=== PATIENT | female | born 1975 | race Caucasian/White ===

== ENCOUNTER 2018-05-04 11:49 | Inpatient (IN) | payer OTHER ==
[2018-05-04 12:05] VITALS: BMI 20.4
--- NOTE | 2018-05-04 12:56 | HP ---
CIWA Score - CIWA Score Nausea/Vomitin Muscle Tremors: 3 Anxiety: 3 Agitation: 2 Paroxysmal Sweats: 1-Minimal Palms Moist Orientation: 0-Oriented Tacttile Disturbances: 1-Very Mild Itch/Numbness Auditory Disturbances: 1-Very Mild Visual Disturbances: 1-Very Mild Sensitivity Headache: 2-Mild CIWA-Ar Total Score: 17 Admission ROS BHS - HPI Chief Complaint: i need help to stop drinking alcohol, Allergies/Adverse Reactions: Allergies Allergy/AdvReac Type Severity Reaction Status Date / Time bacitracin Allergy Verified 05/04/18 12:43 butorphanol [From Stadol] Allergy Verified 05/04/18 12:43 fish derived Allergy Verified 05/04/18 12:43 latex Allergy Verified 05/04/18 12:43 pentazocine [From Talwin] Allergy Verified 05/04/18 12:43 History of Present Illness: this 43 years old female with alcohol dependence,seeking detox,withdrawal symptom,last detox last [facility], alcohol related seizure last 2016 syncope,last 05/02/18 hepatitis c bipolar disorder,manic depressive,ptsd weight loss nicotine dependence longest period of 21 years multiple abdominal surgery appendectomy in 2009,ovarean cystectomy in 2013, abdominal hernia with mesh in 2016 Exam Limitations: No Limitations - Ebola screening Have you traveled outside of the country in the last 21 days: No (N) Have you had contact with anyone from an Ebola affected area: No Have you been sick,other than usual withdrawal symptoms: No Do you have a fever: No - Review of Systems Constitutional: Loss of Appetite, Malaise, Night Sweats, Changes in sleep, Weakness, Unintentional Wgt. Loss EENT: reports: Nose Congestion Respiratory: reports: No Symptoms reported Cardiac: reports: Palpitations GI: reports: Diarrhea, Nausea, Poor Appetite, Vomiting, Abdominal cramping : reports: No Symptoms Reported Musculoskeletal: reports: Back Pain, Muscle Pain Integumentary: reports: Dryness Neuro: reports: Headache, Tremors Endocrine: reports: Other (gestational diabetes) Hematology: reports: No Symptoms Reported Psychiatric: reports: No Sypmtoms Reported, Judgement Intact, Mood/Affect Appropiate, Anxious (bipolar disorder,manic depressive,ptsd), Depressed Patient History - Patient Medical History Hx Anemia: No Hx Asthma: No Hx Chronic Obstructive Pulmonary Disease (COPD): No Hx Cancer: No Hx Cardiac Disorders: No Hx Congestive Heart Failure: No Hx Hypertension: No Hx Hypercholesterolemia: No Hx Pacemaker: No HX Cerebrovascular Accident: No Hx Seizures: Yes (alcohol related last 2016) Hx Dementia: No Hx Diabetes: No Hx Gastrointestinal Disorders: No Hx Liver Disease: Yes (hepatitis c) Hx Genitourinary Disorders: No Hx Sexually Transmitted Disorders: No Hx Renal Disease (ESRD): No Hx Thyroid Disease: No Hx Human Immunodeficiency Virus (HIV): No (last 2017 negative) Hx Hepatitis C: Yes Hx Depression: Yes Hx Suicide Attempt: Yes (cutter at age 39) Hx Bipolar Disorder: Yes Hx Schizophrenia: Yes (manic depressive) Other Medical History: no suicidal,no homicidal - Patient Surgical History Past Surgical History: Yes Hx Abdominal Surgery: Yes Hx Appendectomy: Yes (in 2009) Other Surgical History: ovarean cystectomy in 2013,hernia with mesh in 2015 - PPD History Previous Implant?: No Documented Results: Negative w/o proof Implanted On Prior R Admission?: No - Reproductive History Patient is a Female of Child Bearing Age (11 -55 yrs old): Yes Last Menstrual Period: 04/02/18 Patient : No - Smoking Cessation Smoking history: Current every day smoker Aproximately how many cigarettes per day: 15 Hx Chewing Tobacco Use: Yes Initiated information on smoking cessation: Yes 'Breaking Loose' booklet given: 05/04/18 - Substance & Tx. History Hx Alcohol Use: Yes Hx Substance Use: Yes Substance Use Type: Alcohol, Marijuana - Substances Abused Alcohol Route: Oral Frequency: Daily Amount used: 4-5 PINTS VODKA 6 BEERS Age of first use: 12 Date of Last Use: 05/03/18 Marijuana/Hashish Route: Smoking Frequency: 1-3 times last 30 days Amount used: 10$ Age of first use: 12 Date of Last Use: 05/02/18 Family Disease History - Family Disease History Family Disease History: Other: Father (alcohol) Admission Physical Exam S - Vital Signs Vital Signs: Vital Signs - 24 hr 05/04/18 12:02 Temperature 98.1 F Pulse Rate 108 H Respiratory 20 Rate Blood Pressure 112/77 - Physical General Appearance: Yes: Moderate Distress, Tremorous, Irritable, Sweating, Anxious HEENTM: Yes: Normocephalic, NANCI, Pharynx Normal, Other (dry lip and mucosa) Respiratory: Yes: Lungs Clear, Normal Breath Sounds, No Respiratory Distress Neck: Yes: Within Normal Limits, Supple, Trachea in good position Breast: Yes: Breast Exam Deferred Cardiology: Yes: Tachycardia Abdominal: Yes: Within Normal Limits, Normal Bowel Sounds, Non Tender, Soft Genitourinary: Yes: Within Normal Limits Musculoskeletal: Yes: Back pain, Muscle Pain Extremities: Yes: Tremors 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 NML intact, Fully Oriented, Alert, Motor Strength 5/5 Integumentary: Yes: Dry Lymphatic: Yes: Within Normal Limits - Diagnostic (1) Alcohol dependence with uncomplicated withdrawal Current Visit: Yes Status: Acute (2) Cannabis abuse Current Visit: Yes Status: Acute (3) Alcohol related seizure Current Visit: Yes Status: Acute (4) Syncope Current Visit: Yes Status: Acute (5) Weight loss Current Visit: Yes Status: Acute (6) Hepatitis C Current Visit: Yes Status: Acute (7) Bipolar disorder Current Visit: Yes Status: Acute (8) Manic depressive disorder Current Visit: Yes Status: Acute (9) PTSD (post-traumatic stress disorder) Current Visit: Yes Status: Acute (10) Dehydration Current Visit: Yes Status: Acute (11) History of appendectomy Current Visit: Yes Status: Acute (12) History of ovarian cystectomy Current Visit: Yes Status: Acute (13) History of abdominal hernia Current Visit: Yes Status: Acute Cleared for Admission [facility] - Detox or Rehab [facility] Level of Care: Medically Managed Detox Regimen/Protocol: Librium [facility] Breath Alcohol Content Breath Alcohol Content: 0 Urine Pregancy Test - Result Urine Test Results: Negative- NO Line Present Urine Drug Screen - Results Drug Screen Negative: No Urine Drug Screen Results: BZO-Benzodiazepines
[2018-05-04] MEDS ORDERED: MAG HYDROX/AL HYDROX/SIMETH 30 ML UNIT-DOSE CUP PO PRN (13:28)
[2018-05-04] MEDS ORDERED: chlordiazePOXIDE HCL 25 MG CAPSULE PO PRN (13:28)
[2018-05-04] MEDS ORDERED: LOPERAMIDE HCL 2 MG CAPSULE PO PRN (13:28)
[2018-05-04] MEDS ORDERED: MENTHOL/PHENOL 1 EACH UD MM PRN (13:28)
[2018-05-04] MEDS ORDERED: ACETAMINOPHEN 325 MG TABLET (FP) PO PRN (13:28)
[2018-05-04] MEDS ORDERED: P-EPHED 60MG/TRIPROLIDI 2.5MG TABLET PO PRN (13:28)
[2018-05-04] MEDS ORDERED: guaiFENesin/D-METHORPHAN HB 10 ML UNIT-DOSE CUPS PO PRN (13:28)
[2018-05-04] MEDS ORDERED: MAGNESIUM HYDROX 2400MG/30ML ORAL SUSPENSION 30 ML CUP PO PRN (13:28)
[2018-05-04] MEDS ORDERED: hydrOXYzine PAMOATE 25 MG CAPSULE (FP) PO PRN (13:28)
[2018-05-04] MEDS ORDERED: IBUPROFEN 400 MG TABLET (FP) PO PRN (13:28)
[2018-05-04] MEDS ORDERED: MAGNESIUM CITRATE 300 ML BOTTLE PO PRN (13:28)
[2018-05-04] MEDS: NICOTINE POLACRILEX 2 MG GUM BUC PRN ×2 (14:34→22:36)
[2018-05-04] MEDS: NICOTINE 21 MG/24 HOURS TOPICAL PATCH TD SCH (15:01)
[2018-05-04] MEDS: chlordiazePOXIDE HCL 25 MG CAPSULE PO SCH ×2 (17:16→22:33)
[2018-05-04] MEDS ORDERED: MELATONIN 5 MG TABLETS PO PRN (22:00)
[2018-05-04] MEDS: THIAMINE HCL 100 MG TABLET (FP) PO SCH (22:33)
[2018-05-05] MEDS: chlordiazePOXIDE HCL 25 MG CAPSULE PO SCH ×4 (05:57→22:09)
[2018-05-05] MEDS: NICOTINE 21 MG/24 HOURS TOPICAL PATCH TD SCH (10:19)
[2018-05-05] MEDS: PRENATAL VITAMINS W/ FOLIC ACID TABLET (FP) PO SCH (10:19)
[2018-05-05] MEDS: NICOTINE POLACRILEX 2 MG GUM BUC PRN ×3 (10:19→22:09)
[2018-05-05 11:12] LABS: HEMATOCRIT 42.1 % (32.4-45.2); HEMOGLOBIN 13.9 GM/dL (10.7-15.3); MCH 31.5 pg (25.7-33.7); MEAN CELL VOLUME 95.5 fl (80-96); MEAN PLT VOLUME 8.5 fl (7.5-11.1); PLATELET COUNT 149 K/MM3 (134-434); RBC 4.41 M/mm3 (3.60-5.2); RDW 14.7 % (11.6-15.6); WHITE BLOOD COUNT 3.6 K/mm3 (4.0-10.0)
[2018-05-05 11:23] LABS: ALBUMIN 3.2 g/dl (3.4-5.0); ALK PHOS 64 U/L (45-117); ANION GAP 10 MMOL/L (8-16); BILIRUBIN,TOTAL 0.3 mg/dL (0.2-1); BLOOD UREA NITROGEN 10 mg/dL (7-18); CALCIUM 9.2 mg/dL (8.5-10.1); CHLORIDE 106 mmol/L (98-107); CO2 27 mmol/L (21-32); CREATININE 0.6 mg/dL (0.55-1.3); GLUCOSE,RANDOM 110 mg/dL (74-106); SGOT/AST 67 U/L (15-37); SGPT/ALT 100 U/L (13-61); SODIUM 143 mmol/L (136-145); TOT PROT 6.4 g/dl (6.4-8.2)
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
[2018-05-05] MEDS: FLUoxetine HCL 20 MG CAPSULE (FP) PO SCH (13:05)
[2018-05-05] MEDS: GABAPENTIN 400 MG CAPSULE (FP) PO SCH ×2 (13:06→22:09)
[2018-05-05] MEDS ORDERED: chlordiazePOXIDE HCL 25 MG CAPSULE PO ONE (13:45)
--- NOTE | 2018-05-05 17:21 | PN ---
[facility] CIWA - CIWA Score Nausea/Vomitin-Mild Nausea/No Vomiting Muscle Tremors: 4-Moderate,w/Arms Extend Anxiety: 4-Mod. Anxious/Guarded Agitation: 3 Paroxysmal Sweats: 1-Minimal Palms Moist Orientation: 0-Oriented Tacttile Disturbances: 1-Very Mild Itch/Numbness Auditory Disturbances: 0-None Visual Disturbances: 0-None Headache: 1-Very Mild CIWA-Ar Total Score: 15 BHS Progress Note (SOAP) Subjective: tremor sweat restlessness anxiety Objective: 05/05/18 17:20 Vital Signs Temperature 98.1 F 05/05/18 14:11 Pulse Rate 81 05/05/18 14:11 Respiratory Rate 16 05/05/18 14:11 Blood Pressure 100/67 05/05/18 14:11 O2 Sat by Pulse Oximetry (%) Laboratory Last Values WBC 3.6 K/mm3 (4.0-10.0) L 05/05/18 07:49 RBC 4.41 M/mm3 (3.60-5.2) 05/05/18 07:49 Hgb 13.9 GM/dL (10.7-15.3) 05/05/18 07:49 Hct 42.1 % (32.4-45.2) 05/05/18 07:49 MCV 95.5 fl (80-96) 05/05/18 07:49 MCH 31.5 pg (25.7-33.7) 05/05/18 07:49 MCHC 33.0 g/dl (32.0-36.0) 05/05/18 07:49 RDW 14.7 % (11.6-15.6) 05/05/18 07:49 Plt Count 149 K/MM3 (134-434) 05/05/18 07:49 MPV 8.5 fl (7.5-11.1) 05/05/18 07:49 Sodium 143 mmol/L (136-145) 05/05/18 07:49 Potassium 4.0 mmol/L (3.5-5.1) 05/05/18 07:49 Chloride 106 mmol/L (98-107) 05/05/18 07:49 Carbon Dioxide 27 mmol/L (21-32) 05/05/18 07:49 Anion Gap 10 MMOL/L (8-16) 05/05/18 07:49 BUN 10 mg/dL (7-18) 05/05/18 07:49 Creatinine 0.6 mg/dL (0.55-1.3) 05/05/18 07:49 Creat Clearance w eGFR > 60 (>60) 05/05/18 07:49 Random Glucose 110 mg/dL (74-106) H 05/05/18 07:49 Calcium 9.2 mg/dL (8.5-10.1) 05/05/18 07:49 Total Bilirubin 0.3 mg/dL (0.2-1) 05/05/18 07:49 AST 67 U/L (15-37) H 05/05/18 07:49 ALT 100 U/L (13-61) H 05/05/18 07:49 Alkaline Phosphatase 64 U/L (45-117) 05/05/18 07:49 Total Protein 6.4 g/dl (6.4-8.2) 05/05/18 07:49 Albumin 3.2 g/dl (3.4-5.0) L 05/05/18 07:49 RPR Titer Nonreactive (NONREACTIVE) 05/05/18 07:49 lab noted wait for urine Assessment: 05/05/18 17:21 withdrawal sx Plan: continue detox
[2018-05-05] MEDS ORDERED: QUEtiapine FUMARATE 25 MG TABLET (FP) PO SCH (22:00)
[2018-05-05] MEDS: traZODone HCL 50 MG TABLET (FP) PO SCH (22:09)
[2018-05-05] MEDS: THIAMINE HCL 100 MG TABLET (FP) PO SCH (22:09)
[2018-05-06] MEDS: chlordiazePOXIDE HCL 25 MG CAPSULE PO SCH ×2 (05:23→10:16)
[2018-05-06] MEDS: GABAPENTIN 400 MG CAPSULE (FP) PO SCH ×3 (05:23→22:09)
[2018-05-06] MEDS: FLUoxetine HCL 20 MG CAPSULE (FP) PO SCH (10:15)
[2018-05-06] MEDS: NICOTINE POLACRILEX 2 MG GUM BUC PRN ×2 (10:16→17:17)
[2018-05-06] MEDS: NICOTINE 21 MG/24 HOURS TOPICAL PATCH TD SCH (10:16)
[2018-05-06] MEDS: PRENATAL VITAMINS W/ FOLIC ACID TABLET (FP) PO SCH (10:16)
--- NOTE | 2018-05-06 10:34 | PN ---
S CIWA - CIWA Score Nausea/Vomitin-No Nausea/No Vomiting Muscle Tremors: 4-Moderate,w/Arms Extend Anxiety: 3 Agitation: 3 Paroxysmal Sweats: 3 Orientation: 0-Oriented Tacttile Disturbances: 0-None Auditory Disturbances: 0-None Visual Disturbances: 0-None Headache: 0-None Present CIWA-Ar Total Score: 13 S Progress Note (SOAP) Subjective: sweats shakes interrupted sleep body aches I have UTI I was started on medication. Objective: 05/06/18 10:32 Vital Signs Temperature 98.8 F 05/06/18 09:26 Pulse Rate 104 H 05/06/18 09:26 Respiratory Rate 16 05/06/18 09:26 Blood Pressure 90/54 L 05/06/18 09:26 O2 Sat by Pulse Oximetry (%) Laboratory Tests 05/05/18 05/05/18 05/05/18 07:49 07:49 07:49 WBC 3.6 L RBC 4.41 Hgb 13.9 Hct 42.1 MCV 95.5 MCH 31.5 MCHC 33.0 RDW 14.7 Plt Count 149 MPV 8.5 Sodium 143 Potassium 4.0 Chloride 106 Carbon Dioxide 27 Anion Gap 10 BUN 10 Creatinine 0.6 Creat Clearance w eGFR > 60 Random Glucose 110 H Calcium 9.2 Total Bilirubin 0.3 AST 67 H ALT 100 H Alkaline Phosphatase 64 Total Protein 6.4 Albumin 3.2 L RPR Titer Nonreactive rest of labs pending aaox3 ambulating no acute distress Assessment: 05/06/18 10:34 withdrawal sx Plan: continue detox increase fluids labs pending bactrim abx started
[2018-05-06] MEDS: SULFAMETHOXAZOLE/TRIMETHOPRIM 800MG/160MG D.S. TABLET PO SCH (12:52)
--- NOTE | 2018-05-06 13:51 | PN ---
Psychiatric Progress Note Vital Signs: Vital Signs Period Temp Pulse Resp BP Sys/Brown Pulse Ox Last 24 Hr 95.4 F-99.0 F 62-104 16-18 90-104/54-67 Date of Session: 05/06/18 Chief Complaint:: "I need my medications." HPI: Patient admitted to for alcohol dependence. ROS: Hep C. Umbilical hernia 2016. Appendectomy in 2009. Ovarian cystectomy in 2013 Current Medications: Active Medications Generic Name Dose Route Start Last Admin Trade Name Freq PRN Reason Stop Dose Admin Al Hydroxide/Mg Hydroxide 30 ml 05/04/18 13:28 Mylanta Oral Suspension - PO Q6H PRN DYSPEPSIA Benztropine Mesylate 1 mg 05/06/18 22:00 Cogentin - PO HS BC Chlordiazepoxide HCl 15 mg 05/06/18 17:00 Librium - PO 05/07/18 11:01 [id number] BC Chlordiazepoxide HCl 25 mg 05/04/18 13:28 05/04/18 14:30 Librium - PO 05/07/18 13:27 25 mg Q4H PRN Administration WITHDRAWAL(CONT SUBST) Chlordiazepoxide HCl 10 mg 05/07/18 17:00 Librium - PO 05/08/18 11:01 [id number] BC Eucalyptus/Menthol/Phenol/Sorbitol 1 each 05/04/18 13:28 Cepastat Lozenge - MM Q4H PRN SORE THROAT Fluoxetine HCl 40 mg 05/05/18 12:00 05/06/18 10:15 Prozac - PO 40 mg DAILY BC Administration Gabapentin 400 mg 05/05/18 14:00 05/06/18 13:00 Neurontin - PO 400 mg TID BC Administration Guaifenesin 10 ml 05/04/18 13:28 Robitussin Dm - PO Q6H PRN COUGH Hydroxyzine Pamoate 25 mg 05/04/18 13:28 Vistaril - PO Q4H PRN AGITATION Loperamide HCl 4 mg 05/04/18 13:28 Imodium - PO Q6H PRN DIARRHEA Magnesium Citrate 300 ml 05/04/18 13:28 Citroma - PO Q48H PRN CONSTIPATION Magnesium Hydroxide 30 ml 05/04/18 13:28 Milk Of Magnesia - PO DAILY PRN CONSTIPATION Melatonin 5 mg 05/04/18 22:00 05/04/18 22:34 Melatonin PO 5 mg HS PRN Administration INSOMNIA Nicotine 21 mg 05/04/18 13:45 05/06/18 10:16 Nicoderm Patch - TD 21 mg DAILY BC Administration Nicotine Polacrilex 2 mg 05/04/18 13:28 05/06/18 10:16 Nicorette Gum - BUC 2 mg Q2H PRN Administration NICOTINE REPLACEMENT RX Multivit/Folic Acid/Iron 1 tab 05/05/18 10:00 05/06/18 10:16 Vitamins (Sjr) - PO 1 tab DAILY BC Administration Pseudoephedrine/Triprolidine 1 combo 05/04/18 13:28 Actifed - PO TID PRN NASAL CONGESTION Quetiapine Fumarate 25 mg 05/06/18 22:00 Seroquel - PO BID BC Thiamine HCl 100 mg 05/04/18 22:00 05/05/18 22:09 Vitamin B1 - PO 100 mg HS BC Administration Trazodone HCl 100 mg 05/05/18 22:00 05/05/18 22:09 Desyrel - PO 100 mg HS BC Administration Trimethoprim/Sulfamethoxazole 1 each 05/06/18 10:15 05/06/18 12:52 Bactrim Ds - PO 1 each DAILY BC Administration Medication(s) Change(s): Will order seroquel 25mg BID + Cogentin 1mg qhs. Current Side Effect: No Lab tests ordered: No Lab tests reviewed: Yes Provider note:: Chart reviewed. Dr. Mayo note read and appreciated. Patient with a history of depressive disorder and PTSD. She is currently prescribed prozac 40mg + Seroquel 25mg qhs + gabapentin 400mg TID + Trazodone 100mg qhs. She reports taking seroquel 25mg BID. Patient is requesting seroquel 25mg BID and cogentin 2mg. Pharmacy claims reviewed and noted a prescription of cogentin 2mg for 05/03/18. Will order seroquel 25mg BID + Cogentin .5mg qhs. There is no clinical indication for cogentin 2mg qhs. Total face to face time:: 25 Mental Status Exam - Mental Status Exam Alert and Oriented to: Time, Place, Person Cognitive Function: Good Patient Appearance: Well Groomed Mood: Euthymic Affect: Mood Congruent Patient Behavior: Cooperative Speech Pattern: Appropriate Voice Loudness: Moderately Soft/Quiet Thought Process: Intact, Goal Oriented Thought Disorder: Not Present Hallucinations: Denies Suicidal Ideation: Denies Homicidal Ideation: Denies Insight/Judgement: Poor Sleep: Poorly Appetite: Fair Muscle strength/Tone: Normal Gait/Station: Normal Psychiatric Treatment Plan - Problem List (1) Alcohol dependence with uncomplicated withdrawal Current Visit: Yes (2) Bipolar disorder Current Visit: Yes (3) Manic depressive disorder Current Visit: Yes (4) PTSD (post-traumatic stress disorder) Current Visit: Yes
[2018-05-06 14:50] LABS: URINE APPEARANCE SLCLOUDY; URINE BILIRUBIN NEGATIVE (<2.0 mg/dL); URINE COLOR YELLOW; URINE GLUCOSE (UA) 1+ (NEGATIVE); URINE KETONE NEGATIVE (NEGATIVE); URINE LEUK ESTERASE NEGATIVE (NEGATIVE); URINE NITRITE NEGATIVE (NEGATIVE); URINE PROTEIN NEGATIVE (NEGATIVE); URINE UROBILINOGEN NEGATIVE mg/dL (0.2-1.0)
[2018-05-06] MEDS: chlordiazePOXIDE 5 MG CAPSULE PO SCH ×2 (17:16→22:10)
[2018-05-06] MEDS ORDERED: BENZTROPINE MESYLATE 1 MG TABLET (FP) PO SCH (22:00)
[2018-05-06] MEDS ORDERED: BENZTROPINE MESYLATE 2 MG TABLET PO SCH (22:00)
[2018-05-06] MEDS: traZODone HCL 50 MG TABLET (FP) PO SCH (22:09)
[2018-05-06] MEDS: THIAMINE HCL 100 MG TABLET (FP) PO SCH (22:10)
[2018-05-06] MEDS: QUEtiapine FUMARATE 25 MG TABLET (FP) PO SCH (22:10)
[2018-05-07] MEDS: GABAPENTIN 400 MG CAPSULE (FP) PO SCH (05:44)
[2018-05-07] MEDS: chlordiazePOXIDE 5 MG CAPSULE PO SCH ×2 (05:44→10:29)
[2018-05-07 09:25] VITALS: TEMP 97.7
[2018-05-07] MEDS: FLUoxetine HCL 20 MG CAPSULE (FP) PO SCH (10:29)
[2018-05-07] MEDS: SULFAMETHOXAZOLE/TRIMETHOPRIM 800MG/160MG D.S. TABLET PO SCH (10:29)
[2018-05-07] MEDS: QUEtiapine FUMARATE 25 MG TABLET (FP) PO SCH (10:29)
[2018-05-07] MEDS: NICOTINE 21 MG/24 HOURS TOPICAL PATCH TD SCH (10:30)
[2018-05-07] MEDS: NICOTINE POLACRILEX 2 MG GUM BUC PRN (10:30)
[2018-05-07] MEDS: PRENATAL VITAMINS W/ FOLIC ACID TABLET (FP) PO SCH (10:30)
[2018-05-07 10:53] VITALS: BP 116/69; PULSE 101
--- NOTE | 2018-05-07 11:09 | EKG ---
Test Reason : Blood Pressure : / mmHG Vent. Rate : 086 BPM Atrial Rate : 086 BPM P-R Int : 138 ms QRS Dur : 070 ms QT Int : 376 ms P-R-T Axes : 069 033 026 degrees QTc Int : 449 ms NORMAL SINUS RHYTHM NONSPECIFIC ST ABNORMALITY ABNORMAL ECG NO PREVIOUS ECGS AVAILABLE Confirmed by Murray Escobedo MD ([id number]) on 05/07/2018 11:09:34 AM Referred By: Confirmed By:Murray Escobedo MD
--- NOTE | 2018-05-07 11:50 | PN ---
S Progress Note Note: pt is leaving due to personal issues. Pt will sign out AMA. transportation is being arranged to have her picked up today.
--- NOTE | 2018-05-07 11:51 | DS ---
[facility] Detox Discharge Summary Admission Date: 05/04/18 - History Present History: Alcohol Dependence, Cannabis Dependence - Physical Exam Results Vital Signs: Vital Signs Temperature 97.7 F 05/07/18 09:21 Pulse Rate 101 H 05/07/18 10:52 Respiratory Rate 18 05/07/18 10:52 Blood Pressure 116/69 05/07/18 10:52 O2 Sat by Pulse Oximetry (%) - Treatment Hospital Course: Discharged Condition Good - Medication Discharge Medications: Ambulatory Orders Benztropine Mesylate 2 mg PO HS 05/04/18 Fluoxetine HCl 20 mg PO BID 05/04/18 Gabapentin 400 mg PO TID 05/04/18 Sulfamethoxazole/Trimethoprim [Bactrim Ds -] 1 tab PO DAILY 05/04/18 traZODone HCL [Trazodone HCl] 100 mg PO HS 05/04/18 - AMA Did Patient Leave Against Medical Advice: Yes (going home.transportation arranged. )
[2018-05-07] MEDS ORDERED: chlordiazePOXIDE HCL 10 MG CAPSULE PO SCH (17:00)
== END 2018-05-07 12:35 | disposition left against medical advice (07) | DRG 770 ==
LOC: YASAS 11:49 → Y6N 13:36
PROC: HZ2ZZZZ Detoxification Services for Substance Abuse Treatment (ICD-10-PCS; principal; 2018-05-04)
DX: F10.230 Alcohol dependence with withdrawal, uncomplicated (principal); F12.10 Cannabis abuse, uncomplicated; F17.210 Nicotine dependence, cigarettes, uncomplicated; F31.9 Bipolar disorder, unspecified; F43.10 Post-traumatic stress disorder, unspecified; B18.2 Chronic viral hepatitis C; E86.0 Dehydration; R00.0 Tachycardia, unspecified; Z91.013 Allergy to seafood; Z88.8 Allergy status to other drugs, medicaments and biological substances; Z86.69 Personal history of other diseases of the nervous system and sense organs; Z87.898 Personal history of other specified conditions; Z91.5 Personal history of self-harm
CPT/HCPCS: 36415; 80053; 81003; 85027; 86593; 93005; 93010

== ENCOUNTER 2023-08-22 15:16 | Inpatient (IN) | payer OTHER ==
[2023-08-22 17:00] VITALS: BMI 27.1
[2023-08-22] MEDS ORDERED: MAGNESIUM HYDROX 2400MG/30ML ORAL SUSPENSION 30 ML CUP PO PRN (18:25)
[2023-08-22] MEDS ORDERED: POLYETHYLENE GLYCOL (HEALTHYLAX) 3350 17 GM PACKET PO PRN (18:25)
[2023-08-22] MEDS ORDERED: LOPERAMIDE HCL 2 MG CAPSULE PO PRN (18:25)
[2023-08-22] MEDS ORDERED: NALOXONE HCL 0.4 MG/ML VIAL IM PRN (18:25)
[2023-08-22] MEDS ORDERED: guaiFENesin 600 MG TABLET.ER (FP) PO PRN (18:25)
[2023-08-22] MEDS ORDERED: ACETAMINOPHEN 325 MG TABLET (FP) PO PRN (18:25)
[2023-08-22] MEDS ORDERED: DICYCLOMINE HCL 10 MG CAPSULE PO PRN (18:25)
[2023-08-22] MEDS ORDERED: NALOXONE HCL (KLOXXADO) 8 MG SPRAY NS PRN (18:25)
[2023-08-22] MEDS ORDERED: BENZOCAINE/MENTHOL (CHLORASEPTIC ) LOZENGE MM PRN (18:25)
[2023-08-22] MEDS ORDERED: P-EPHED 60MG/TRIPROLIDI 2.5MG TABLET PO PRN (18:25)
[2023-08-22] MEDS ORDERED: IBUPROFEN 400 MG TABLET (FP) PO PRN (18:25)
[2023-08-22] MEDS ORDERED: NICOTINE POLACRILEX 2 MG LOZENGE BC PRN (18:25)
[2023-08-22] MEDS ORDERED: BENZONATATE 200 MG CAPSULE PO PRN (18:25)
[2023-08-22] MEDS ORDERED: BISMUTH SUBSALICYLATE 524 MG/30 ML PO PRN (18:25)
[2023-08-22] MEDS ORDERED: MAG HYDROX/AL HYDROX/SIMETH 30 ML UNIT-DOSE CUP PO PRN (18:25)
[2023-08-22] MEDS ORDERED: chlordiazePOXIDE HCL 25 MG CAPSULE PO PRN (18:27)
[2023-08-22] MEDS ORDERED: chlordiazePOXIDE HCL 25 MG CAPSULE PO ONE (18:45)
[2023-08-22] MEDS: ONDANSETRON *ODT* 4 MG TABLET SL PRN (19:27)
[2023-08-22] MEDS ORDERED: MELATONIN 5 MG TABLETS PO SCH (22:00)
[2023-08-22] MEDS: chlordiazePOXIDE HCL 25 MG CAPSULE PO SCH (22:08)
[2023-08-22] MEDS: THIAMINE HCL 100 MG TABLET (FP) PO SCH (22:09)
[2023-08-22] MEDS: levETIRAcetam 500 MG TABLET (FP) PO SCH (22:11)
[2023-08-22] MEDS ORDERED: QUEtiapine FUMARATE 25 MG TABLET PO ONE (23:26)
[2023-08-22] MEDS ORDERED: traZODone HCL 50 MG TABLET (FP) PO ONE (23:44)
[2023-08-23] MEDS: GABAPENTIN 400 MG CAPSULE PO SCH ×4 (00:34→22:04)
[2023-08-23] MEDS: chlordiazePOXIDE HCL 25 MG CAPSULE PO SCH ×4 (05:29→22:04)
[2023-08-23] MEDS: ONDANSETRON *ODT* 4 MG TABLET SL PRN ×2 (05:31→17:24)
[2023-08-23] MEDS: levETIRAcetam 500 MG TABLET (FP) PO SCH ×2 (10:27→22:04)
[2023-08-23] MEDS: PRENATAL VITAMINS W/ FOLIC ACID TABLET (FP) PO SCH (10:27)
[2023-08-23 11:20] LABS: HEMATOCRIT 36.6 % (32.4-45.2); HEMOGLOBIN 12.2 GM/dL (10.7-15.3); MCH 28.4 pg (25.7-33.7); MCHC 33.5 g/dl (32.0-36.0); MEAN CELL VOLUME 84.7 fl (80-96); MEAN PLT VOLUME 7.9 fl (7.5-11.1); PLATELET COUNT 295 10^3/uL (134-434); RBC 4.32 M/mm3 (3.60-5.2); RDW 15.7 % (11.6-15.6)
[2023-08-23 11:34] LABS: CHLORIDE 99 mmol/L (98-107); POTASSIUM 3.1 mmol/L (3.5-5.1); SODIUM 136 mmol/L (136-145)
[2023-08-23 11:37] LABS: ALBUMIN 2.7 g/dl (3.4-5.0); ANION GAP 9 mmol/L (4-13); BLOOD UREA NITROGEN 6.4 mg/dL (7-18); CALCIUM 7.9 mg/dL (8.5-10.1); CO2 28 mmol/L (21-32)
[2023-08-23 11:40] LABS: CREATININE 0.7 mg/dL (0.55-1.3); SGOT/AST 177 U/L (15-37); SGPT/ALT 109 U/L (13-61)
[2023-08-23 11:41] LABS: BILIRUBIN,TOTAL 0.8 mg/dL (0.2-1)
[2023-08-23 11:42] LABS: GLUCOSE,RANDOM 139 mg/dL (74-106); TOT PROT 6.1 g/dl (6.4-8.2)
[2023-08-23 11:43] LABS: ALK PHOS 120 U/L (45-117)
[2023-08-23] MEDS: FLUoxetine HCL 20 MG CAPSULE PO SCH ×2 (12:16→22:03)
[2023-08-23] MEDS: TRIMETHOBENZAMIDE HCL 200MG/2ML INJ IM PRN (12:17)
[2023-08-23] MEDS: THIAMINE HCL 100 MG TABLET (FP) PO SCH (22:04)
[2023-08-23] MEDS: QUEtiapine FUMARATE 300 MG TABLET PO SCH (22:04)
[2023-08-23] MEDS: IBUPROFEN 600 MG TABLET (FP) PO PRN (23:49)
[2023-08-24] MEDS: chlordiazePOXIDE HCL 25 MG CAPSULE PO SCH ×4 (05:32→22:03)
[2023-08-24] MEDS: GABAPENTIN 400 MG CAPSULE PO SCH ×3 (05:32→22:05)
[2023-08-24] MEDS: ONDANSETRON *ODT* 4 MG TABLET SL PRN ×2 (05:34→22:10)
[2023-08-24] MEDS: PRENATAL VITAMINS W/ FOLIC ACID TABLET (FP) PO SCH (10:35)
[2023-08-24] MEDS: FLUoxetine HCL 20 MG CAPSULE PO SCH ×2 (10:35→22:05)
[2023-08-24] MEDS: levETIRAcetam 500 MG TABLET (FP) PO SCH ×2 (10:35→22:05)
[2023-08-24] MEDS ORDERED: TRIMETHOBENZAMIDE HCL 200MG/2ML INJ IM ONE (11:10)
[2023-08-24] MEDS: POTASSIUM CHLORIDE ORAL LIQUID 20 MEQ/15 ML PO ONE ×2 (13:40→14:17)
[2023-08-24] MEDS: METHOCARBAMOL 500 MG TABLET PO PRN (17:35)
[2023-08-24] MEDS: QUEtiapine FUMARATE 300 MG TABLET PO SCH (22:03)
[2023-08-24] MEDS: THIAMINE HCL 100 MG TABLET (FP) PO SCH (22:03)
[2023-08-24] MEDS: traZODone HCL 100 MG TABLET (FP) PO SCH (22:05)
[2023-08-25] MEDS ORDERED: chlordiazePOXIDE HCL 10 MG CAPSULE PO PRN
[2023-08-25] MEDS: chlordiazePOXIDE HCL 10 MG CAPSULE PO SCH ×4 (05:15→22:14)
[2023-08-25] MEDS: GABAPENTIN 400 MG CAPSULE PO SCH ×3 (05:16→22:15)
[2023-08-25] MEDS: IBUPROFEN 600 MG TABLET (FP) PO PRN (05:17)
[2023-08-25] MEDS: ONDANSETRON *ODT* 4 MG TABLET SL PRN ×2 (05:17→17:37)
[2023-08-25] MEDS: FLUoxetine HCL 20 MG CAPSULE PO SCH ×2 (10:40→22:14)
[2023-08-25] MEDS: PRENATAL VITAMINS W/ FOLIC ACID TABLET (FP) PO SCH (10:40)
[2023-08-25] MEDS: levETIRAcetam 500 MG TABLET (FP) PO SCH ×2 (10:40→22:15)
[2023-08-25] MEDS: TRIMETHOBENZAMIDE HCL 200MG/2ML INJ IM PRN (11:27)
[2023-08-25] MEDS: QUEtiapine FUMARATE 300 MG TABLET PO SCH (22:14)
[2023-08-25] MEDS: THIAMINE HCL 100 MG TABLET (FP) PO SCH (22:15)
[2023-08-25] MEDS: traZODone HCL 100 MG TABLET (FP) PO SCH (22:15)
[2023-08-26] MEDS ORDERED: chlordiazePOXIDE HCL 10 MG CAPSULE PO SCH (05:00)
[2023-08-26] MEDS: GABAPENTIN 400 MG CAPSULE PO SCH ×3 (05:37→22:09)
[2023-08-26] MEDS: ONDANSETRON *ODT* 4 MG TABLET SL PRN ×2 (05:37→18:01)
[2023-08-26] MEDS: METHOCARBAMOL 500 MG TABLET PO PRN (09:12)
[2023-08-26] MEDS: levETIRAcetam 500 MG TABLET (FP) PO SCH ×2 (09:12→22:09)
[2023-08-26] MEDS: PRENATAL VITAMINS W/ FOLIC ACID TABLET (FP) PO SCH (09:12)
[2023-08-26] MEDS: FLUoxetine HCL 20 MG CAPSULE PO SCH ×2 (09:12→22:09)
[2023-08-26] MEDS: LACTULOSE 20 GM/30 ML UDC (FOR ORAL USE ONLY) PO SCH ×3 (13:23→22:09)
[2023-08-26] MEDS ORDERED: LORazepam 0.5 MG TABLET PO ONE (18:00)
[2023-08-26] MEDS: THIAMINE HCL 100 MG TABLET (FP) PO SCH (22:09)
[2023-08-26] MEDS: traZODone HCL 100 MG TABLET (FP) PO SCH (22:09)
[2023-08-26] MEDS: QUEtiapine FUMARATE 300 MG TABLET PO SCH (22:09)
[2023-08-27] MEDS ORDERED: chlordiazePOXIDE HCL 10 MG CAPSULE PO ONE (05:00)
[2023-08-27] MEDS: ONDANSETRON *ODT* 4 MG TABLET SL PRN (05:31)
[2023-08-27] MEDS: GABAPENTIN 400 MG CAPSULE PO SCH (05:32)
[2023-08-27] MEDS ORDERED: LORazepam 0.5 MG TABLET PO ONE (06:00)
[2023-08-27] MEDS: LACTULOSE 20 GM/30 ML UDC (FOR ORAL USE ONLY) PO SCH (09:07)
[2023-08-27] MEDS: levETIRAcetam 500 MG TABLET (FP) PO SCH (09:07)
[2023-08-27] MEDS: PRENATAL VITAMINS W/ FOLIC ACID TABLET (FP) PO SCH (09:07)
[2023-08-27] MEDS: FLUoxetine HCL 20 MG CAPSULE PO SCH (09:07)
[2023-08-27 09:19] VITALS: BP 122/77; PULSE 99; RESP 18; TEMP 97.1
== END 2023-08-27 10:00 | disposition home or self-care (01) | DRG 775 ==
LOC: YASAS 15:16 → Y6N 18:46
PROVIDERS: ADMIT Allergy & Immunology; ATTEND Surgery
PROC: HZ2ZZZZ Detoxification Services for Substance Abuse Treatment (ICD-10-PCS; principal; 2023-08-22)
DX: F10.230 Alcohol dependence with withdrawal, uncomplicated (principal); F10.280 Alcohol dependence with alcohol-induced anxiety disorder; F10.24 Alcohol dependence with alcohol-induced mood disorder; F43.10 Post-traumatic stress disorder, unspecified; F60.3 Borderline personality disorder; E72.20 Disorder of urea cycle metabolism, unspecified; E87.6 Hypokalemia; G62.9 Polyneuropathy, unspecified; G40.909 Epilepsy, unspecified, not intractable, without status epilepticus; I10 Essential (primary) hypertension; J44.9 Chronic obstructive pulmonary disease, unspecified; B18.2 Chronic viral hepatitis C; R73.9 Hyperglycemia, unspecified; Z99.89 Dependence on other enabling machines and devices; Z86.19 Personal history of other infectious and parasitic diseases; Z88.8 Allergy status to other drugs, medicaments and biological substances; Z28.310 Unvaccinated for COVID-19; Z28.9 Immunization not carried out for unspecified reason
CPT/HCPCS: 36415; 80053; 80307; 81025; 82140; 82962; 84132; 85027; 86780; 87635; Q0162